=== PATIENT | male | born 1980 | race African-American/Black ===

== ENCOUNTER 2019-04-15 22:35 | Emergency (ER) | payer OTHER ==
[2019-04-15 23:45] LABS: Appearance,Urine Clear (Clear); Bilirubin,Urine Negative (Negative); Blood,Urine Negative (Negative); Color,Urine Light Yellow; Glucose,Urine (UA) Negative (Negative); Ketones,Urine Negative (Negative); Leukocyte Esterase,Urine Negative (Negative); Nitrite,Urine Negative (Negative); Protein,Urine Negative (Negative); Specific Gravity,Urine 1.013 (1.001-1.035); Urobilinogen,Urine <2.0 mg/dL (<2.0)
[2019-04-15 23:48] VITALS: RESP 18
[2019-04-16 00:04] LABS: Albumin 4.1 g/dL (3.5-5.0); Potassium 4.1 mmol/L (3.5-5.1); Total Bilirubin 0.3 mg/dL (0.2-1.3); Total Protein 6.9 g/dL (6.3-8.2)
--- NOTE | 2019-04-16 00:19 | ED ---
General Adult HPI - General Chief complaint: Recheck/Abnormal Lab/Rx Stated complaint: High Blood Pressure Time Seen by Provider: 04/15/19 22:43 Source: patient Mode of arrival: ambulatory Limitations: no limitations - History of Present Illness Initial comments: Patient at 38-year-old male presenting to emergency prompt chief complaint of high blood pressure. Patient reports he was at a blood drive to donate blood when they obtained his blood pressure and it was 190/120. Patient reports he became really concerned and took lisinopril and hydrochlorothiazide from his mother. Patient reports he recently moved to [place] and does not have a prima care. Patient does not take any medication. Patient does have family history of hypertension. Patient only reports mild headache at this time. Patient denies any blurry vision, abdominal pain or chest pain. - Related Data Home Medications Medication Instructions Recorded Confirmed No Known Home Medications 04/15/19 04/15/19 Allergies Allergy/AdvReac Type Severity Reaction Status Date / Time No Known Allergies Allergy Verified 04/15/19 22:47 Review of Systems ROS Statement: Those systems with pertinent positive or pertinent negative responses have been documented in the HPI. ROS Other: All systems not noted in ROS Statement are negative. Past Medical History Past Medical History: No Reported History History of Any Multi-Drug Resistant Organisms: None Reported Past Surgical History: No Surgical Hx Reported Past Psychological History: No Psychological Hx Reported Smoking Status: Former smoker Past Alcohol Use History: Occasional Past Drug Use History: None Reported General Exam Limitations: no limitations General appearance: alert, in no apparent distress Head exam: Present: atraumatic, normocephalic, normal inspection Eye exam: Present: normal appearance, PERRL, EOMI Pupils: Present: normal accommodation, other (Funduscopic examination unremarkable. No retinal hemorrhages.) ENT exam: Present: normal exam, normal oropharynx, mucous membranes moist, normal external ear exam Neck exam: Present: normal inspection, full ROM Respiratory exam: Present: normal lung sounds bilaterally Cardiovascular Exam: Present: regular rate, normal rhythm, normal heart sounds GI/Abdominal exam: Present: soft. Absent: tenderness Extremities exam: Present: normal inspection, full ROM Back exam: Present: normal inspection, full ROM Neurological exam: Present: alert, oriented X3, CN II-XII intact, normal gait Psychiatric exam: Present: normal affect, normal mood Skin exam: Present: warm, intact, normal color Course Vital Signs 04/15/19 04/15/19 04/16/19 22:36 23:47 00:51 Temperature 98.3 F 98.4 F Pulse Rate 93 90 84 Respiratory 20 18 18 Rate Blood Pressure 154/108 158/115 149/92 O2 Sat by Pulse 97 95 99 Oximetry EKG Findings - EKG Comments: EKG Findings:: Normal sinus rhythm. Ventricular rate 89, PA interval 130, QRS duration 86, QT/QTC 338/411, p-r-t axes 39 11 29 Medical Decision Making - Medical Decision Making Patient is a 38-year-old male presents to emergency Department with a chief complaint of high blood pressure. Patient had a random blood pressure obtained that measures 190/120. Patient became ill concern and took hydrochlorothiazide lisinopril from his mother. Patient does not have a primary care no was diagnosed with hypertension but does have a family history of hypertension. On initial evaluation patient has a blood pressure of 150/115. Patient also reports a mild headache at this time and no other symptoms. EKG showing normal sinus rhythm. CMP is unremarkable. UA is unremarkable. Patient will be discharged and advised to obtain a family care physician. Patient advised he would possibly need to be prescribed antihypertensive medication. Patient has no complaints at discharge. Strict return parameters were thoroughly discussed with patient was understanding and agreeable. Case discussed with physician. - Lab Data Result diagrams: 04/15/19 23:16 Lab Results 04/15/19 04/15/19 Range/Units 23:16 23:29 Sodium 139 (137-145) mmol/L Potassium 4.1 (3.5-5.1) mmol/L Chloride 104 (98-107) mmol/L Carbon Dioxide 25 (22-30) mmol/L Anion Gap 10 mmol/L BUN 23 H (9-20) mg/dL Creatinine 1.22 (0.66-1.25) mg/dL Est GFR (CKD-EPI)AfAm 88 (>60 ml/min/1.73 sqM) Est GFR (CKD-EPI)NonAf 76 (>60 ml/min/1.73 sqM) Glucose 91 (74-99) mg/dL Calcium 9.0 (8.4-10.2) mg/dL Total Bilirubin 0.3 (0.2-1.3) mg/dL AST 22 (17-59) U/L ALT 42 (21-72) U/L Alkaline Phosphatase 65 (38-126) U/L Total Protein 6.9 (6.3-8.2) g/dL Albumin 4.1 (3.5-5.0) g/dL Urine Color Light Yellow Urine Appearance Clear (Clear) Urine pH 6.0 (5.0-8.0) Ur Specific Cochrane 1.013 (1.001-1.035) Urine Protein Negative (Negative) Urine Glucose (UA) Negative (Negative) Urine Ketones Negative (Negative) Urine Blood Negative (Negative) Urine Nitrite Negative (Negative) Urine Bilirubin Negative (Negative) Urine Urobilinogen <2.0 (<2.0) mg/dL Ur Leukocyte Esterase Negative (Negative) Disposition Clinical Impression: Hypertension Disposition: HOME SELF-CARE Condition: Stable Instructions (If sedation given, give patient instructions): Heart Healthy Diet (DC) Additional Instructions: Please establish a relationship with a primary care. Please return to emergency department if symptoms worsen. Is patient prescribed a controlled substance at d/c from ED?: No Referrals: None,Stated [Primary Care Provider] - 1-2 days Time of Disposition: 00:19
[2019-04-16 00:53] VITALS: BP 149/92; PULSE 84; TEMP 98.4
== END 2019-04-16 00:53 | disposition home or self-care (01) ==
LOC: EC 22:35
DX: I10 Essential (primary) hypertension (principal); R51 Headache; Z87.891 Personal history of nicotine dependence; Z82.49 Family history of ischemic heart disease and other diseases of the circulatory system
CPT/HCPCS: 36415; 80053; 81003; 93005; 99283